=== PATIENT | female | born 1990 | race Caucasian/White ===

== ENCOUNTER 2016-10-18 18:53 | Emergency (ER) | payer OTHER ==
[~2016-10-18] VITALS: Ht 149.8 cm; Wt 50.8 kg
[~2016-10-18 18:53] MED LIST: ATOXIMETIN-B1 CAP PO; BACTRIM DS 8001 TA1 PO; BENADRYL25 M1 PO; BENADRYL50 MG PO; CALCIUM 500 +1 EAC1 PO; CEPHALEXIN500 M1 PO; CLARITIN5 MG/5 ML PO; FLEXERIL5 MG PO; MACROBID100 M1 PO; MEDROL DOSEPAK4 MG PO; MOTRIN600 MG PO; PEPCID20 MG PO; PHARMAC PO; PREDNICOT20 MG PO; PREDNISONE20 MG PO; PRENATAL1 TA3 PO; PREVACID15 MG PO; PULMOZYME 1MG1 MG/ML INH; PYRIDIUM200 MG PO; TRAMADOL HCL50 MG PO; VITAMIN D5000 IU PO
== END 2016-10-18 22:37 | disposition home or self-care (01) ==
LOC: ED 18:53
DX: O9A.212 Injury, poisoning and certain other consequences of external causes complicating pregnancy, second trimester (principal); S93.401A Sprain of unspecified ligament of right ankle, initial encounter; Z79.899 Other long term (current) drug therapy; Z88.1 Allergy status to other antibiotic agents; W19.XXXA Unspecified fall, initial encounter; Y93.89 Activity, other specified; Y92.096 Garden or yard of other non-institutional residence as the place of occurrence of the external cause; Y99.9 Unspecified external cause status; Z3A.25 25 weeks gestation of pregnancy

== ENCOUNTER 2016-12-03 22:05 | Emergency (ER) | payer OTHER ==
[~2016-12-03] VITALS: Ht 149.8 cm; Wt 51.3 kg
[2016-12-03 22:51] LABS: BASO % 0.1 % (0.0-1.0); EOS # 0.2 10*3/uL (0.0-0.4); EOS % 2.2 % (1.0-4.0); HEMATOCRIT 29.3 % (37.0-47.0); HEMOGLOBIN 9.3 g/dl (12.0-16.0); LYMPH # 1.8 10*3/uL (1.3-4.4); LYMPH % 25.9 % (27.0-41.0); MEAN CELL VOLUME 83.7 fl (81.0-99.0); MEAN CORPUSCULAR HGB 26.6 pg (27.0-31.0); MEAN CORPUSCULAR HGB CONC 31.7 g/dl (33.0-37.0); MEAN PLATELET VOLUME 9.4 fl (9.6-12.3); MONO # 0.6 10*3/uL (0.1-1.0); MONO % 8.5 % (3.0-9.0); NEUT # 4.3 10*3/uL (2.3-7.9); NEUT % 62.6 % (47.0-73.0); PLATELET COUNT AUTOMATED 178 10*3/uL (130-400); WHITE BLOOD COUNT 6.8 10*3/uL (4.8-10.8)
[2016-12-03 23:05] LABS: ALBUMIN 2.1 gm/dl (3.1-4.5); ALKALINE PHOSPHATASE 141 U/L (45-117); BUN 6 mg/dl (7-24); CHLORIDE 99 mmol/L (98-107); CREATININE 0.62 mg/dL (0.55-1.02); POTASSIUM 3.3 mmol/L (3.5-5.1); SGOT/AST 19 IU/L (3-35); SGPT/ALT 14 U/L (12-78); SODIUM 137 mmol/L (136-145); TOTAL PROTEIN 7.4 gm/dL (6.4-8.2)
== END 2016-12-03 23:35 | disposition home or self-care (01) ==
LOC: ED 22:05
PROVIDERS: Physician Assistant
DX: O26.893 Other specified pregnancy related conditions, third trimester (principal); R10.9 Unspecified abdominal pain; R20.0 Anesthesia of skin; R20.2 Paresthesia of skin; Z88.1 Allergy status to other antibiotic agents; Z79.899 Other long term (current) drug therapy; Z3A.32 32 weeks gestation of pregnancy

== ENCOUNTER 2016-12-27 20:45 | Emergency (ER) | payer OTHER ==
[~2016-12-27] VITALS: Ht 149.8 cm; Wt 53.1 kg
== END 2016-12-28 00:50 | disposition short-term general hospital (02) ==
LOC: ED 20:45
DX: O26.893 Other specified pregnancy related conditions, third trimester (principal); E84.9 Cystic fibrosis, unspecified; Z88.1 Allergy status to other antibiotic agents; Z79.899 Other long term (current) drug therapy; Z3A.36 36 weeks gestation of pregnancy

== ENCOUNTER → 2018-09-18 | Outpatient (CLI) | payer OTHER | END | disposition home or self-care (01) | LOC: RAD 12:29 | DX: E84.0 Cystic fibrosis with pulmonary manifestations (principal); R05 Cough; R10.9 Unspecified abdominal pain; E84.9 Cystic fibrosis, unspecified ==

== ENCOUNTER → 2023-10-22 | Outpatient (CLI) | payer OTHER | END | disposition home or self-care (01) | LOC: US 08:57 | PROVIDERS: ATTEND Nurse Practitioner Women's Health | DX: N94.10 Unspecified dyspareunia (principal); R10.31 Right lower quadrant pain ==